=== PATIENT | male | born 1940 | race Caucasian/White ===

== ENCOUNTER 2023-05-20 08:40 | Day surgery (SDC) | payer MEDICARE ==
[2023-05-19 11:43] VITALS: BP 130/70; PULSE 56; RESP 18
[2023-05-19 11:54] LABS: BASOPHILS # (AUTO) 0.04 K/uL (0.00-0.20); BASOPHILS % (AUTO) 0.5 % (0.0-5.0); EOSINOPHILS # (AUTO) 0.17 K/uL (0.00-0.70); EOSINOPHILS % (AUTO) 2.3 % (0.0-8.0); HEMATOCRIT 40.9 % (42-54); IMMATURE GRANULOCYTE ABSOLUTE 0.03 K/uL (0-1); LYMPHOCYTES # (AUTO) 1.7 K/uL (1.0-4.8); LYMPHOCYTES % (AUTO) 22.8 % (21.0-51.0); MEAN CORPUSCULAR HEMOGLOBIN 26.4 pg (27.0-33.0); MEAN CORPUSCULAR HGB CONC 31.5 g/dL (32.0-36.0); MEAN CORPUSCULAR VOLUME 83.6 fL (79-99); MONOCYTES # (AUTO) 0.6 K/uL (0.1-1.0); MONOCYTES % (AUTO) 8.1 % (3.0-13.0); NEUTROPHILS % (AUTO) 65.9 % (40.0-77.0); PLATELET COUNT (AUTO) 206 K/uL (130-400); RED BLOOD CELL COUNT(AUTO) 4.89 MIL/uL (4.50-6.20); RED CELL DISTRIBUTION WIDTH 14.1 % (11.0-15.5); WHITE BLOOD COUNT (AUTO) 7.5 K/uL (4.8-10.8)
[2023-05-19 12:03] LABS: CREATININE 0.8 mg/dL (0.5-1.5); POTASSIUM 4.3 mmol/L (3.5-5.1)
[2023-05-19 12:05] LABS: INR 1.04 (0.85-1.15)
[2023-05-19 12:07] LABS: PARTIAL THROMBOPLASTIN TIME 29.3 SEC (26.3-35.5)
[2023-05-19 12:24] LABS: B-TYPE NATRIURETIC PEPTIDE 168 pg/mL (0-100)
[~2023-05-20] VITALS: Ht 182.9 cm; Wt 111.2 kg
[2023-05-20] VITALS (14 sets, daily range): BP systolic 139–167; BP diastolic 70–92; PULSE 51–71; RESP 12–18
[~2023-05-20 08:40] MED LIST: APIX5TAB PO; AZEL23SP2 NS; CARV3.12 PO; FAMO40TA7 PO; FLUT16H NASAL; FLUT1BLS15 IH; LANS30CA55 PO; MONT-39 PO; ROSU10TA28 PO; SACU1TAB PO; TADA5TAB5 PO; TAMS-1 PO
[2023-05-20] MEDS ORDERED: 0.9%NACL 1000ML 1,000 ML IV ONE (09:22)
[2023-05-20] MEDS ORDERED: MIDAZOLAM HCL 1 MG/ML 2ML VIAL ONE (09:25)
[2023-05-20] MEDS ORDERED: FENTANYL CITRATE PF 50 MCG/1 ML 2ML VIAL ONE (09:25)
[2023-05-20] MEDS ORDERED: NALOXONE HCL 0.4 MG/1 ML ML ONE (09:25)
[2023-05-20] MEDS ORDERED: LIDOCAINE HCL 2% VISCOUS 15 ML UDCUP ONE (09:25)
[2023-05-20] MEDS ORDERED: FLUMAZENIL 0.1MG/1ML 5ML VIAL IV ONE (09:26)
== END 2023-05-20 13:00 | disposition home or self-care (01) ==
LOC: DAH 08:40
PROVIDERS: ATTEND Internal Medicine Interventional Cardiology
DX: I48.11 Longstanding persistent atrial fibrillation (principal); Z79.01 Long term (current) use of anticoagulants; Z79.899 Other long term (current) drug therapy
CPT/HCPCS: 80048; 83880; 85025; 85610; 85730; 36415; 71045; 93005; 93325; 93312; J3010; J7030; J2250; A4215; A4223 ×3; A7002; A4222; A4221; A4663; A4216 ×2; A4606; 99152; J2310; J3490; G0500